=== PATIENT | female | born 1960 | race Caucasian/White ===

== ENCOUNTER 2016-08-23 10:56 | Day surgery (SDC) | payer OTHER ==
[2016-08-23] VITALS (10 sets, daily range): BP systolic 130–164; BP diastolic 66–92; PULSE 50–87; RESP 12–36; O2SAT 98–100
[~2016-08-23] VITALS: Ht 175.3 cm; Wt 79.8 kg
[~2016-08-23 10:56] MED LIST: HYDROcodone-APAP 5-325 mg Tablet PO PRN; LEVO175T5 PO; Lactated Ringer's 1,000 ML IV ONE; TRAZ-118 PO
[2016-08-23] MEDS ORDERED: Propofol 10,000 mCg/mL 20 mL Inj ONE (10:57)
[2016-08-23] MEDS ORDERED: Succinylcholine Chloride 20 mg/mL 5 mL Inj ONE (10:57)
[2016-08-23] MEDS ORDERED: fentaNYL-PF 50 mCg/mL 2 mL Inj ONE (10:57)
[2016-08-23] MEDS ORDERED: Phenylephrine/NS 100 mCg/mL 10 mL Syringe IVPUSH ONE (10:57)
[2016-08-23] MEDS ORDERED: Ondansetron 2 mg/mL 2 mL Inj ONE (10:57)
--- NOTE | 2016-08-23 11:15 | PCM.HPANE ---
Patient Data Surgeon Admitting Provider: Attending Provider:Holli Cuellar MD Primary Care Physician:Ismael Other Provider:Praful Phan Anesthesia Reason for Visit Multiple Basal Cell Carcinomas Ht/WT & BMI Height (Feet): 5 Height (Inches): 9 Weight (Kilograms): 79.83 Body Mass Index 26.00 Allergies Coded Allergies: No Known Allergies (Verified Allergy, Unknown, 12/08/14) Past Anesthesia History Anesthesia History: Denies:: Anesthesia Reactions Diabetes History Hx Diabetes?: No Medications Reported Medications Trazodone 100 Mg [id number] Mg PO HS Ref 0 08/19/16 Levothyroxine 175 Mcg [id number] Mcg PO DAILY Ref 0 08/19/16 History History of ENT Problems?: Yes Other HEENT Pertinent History: pt recently seen at for hx of right sided pink eye, abx drops given- prescription should be completed by 08/19/16 Hx of Heart Problems?: No Cardiovascular History: Denies:: Congestive Heart Failure Hypertension Hx of Respiratory Problem?: No Respiratory History: Denies:: Oxygen Administration Tuberculosis Use of C-PAP Machine Hx Neurologic Problems?: No Neurological History: Denies:: CVA Multiple Sclerosis Parkinson's Disease Seizures Hx of GI Problems?: Yes Gastrointestinal History: Positive for:: Gall Bladder Disease (removed) Hx of Problems?: No Genitourinary History: Denies:: Kidney Stones Urinary Tract Infection Female Hx: Denies:: Currently Problems with Breasts? Skin History: Positive for:: History Skin Disorders? (multiple BCC, skin lesions current admission problem) Hx Musculoskeletal Problems?: No Musculoskeletal History: Denies:: Fibromyalgia Joint Replacement Osteoarthritis Hx of Psycho/Social Problems?: No Hx Surgeries?: Yes (hysterectomy, cholecystectomy, thyroidectomy) Hx Any Other Health Problems?: Yes Other History: Positive for:: Cancer (thyroid) Thyroid Disease (thyroidectomy) Hx Diabetes: No Hx Alcohol Use: NoHx Substance Use: No Smoking Status: Current Every Day Smoker Have You Smoked inLast 12 mo: Yes Stop/Bang S-Snoring: Do You Snore Loudly: No T-Tired: feel tired, fatigued: No O-Obsered: Observed not breath: No P-Blood Pressure: treated: No B- Body Mass Index > 35 kg/m2: No A- Age over 50: Yes N- Neck Large Circumference: No G- Gender Male: No SHARON Total Score: 1 Risk Assessment Category Category 1A: Patient has history of documented sleep apnea, and HAS NOT received any narcotic, sedative or anesthesia administration during this stay. Category 1B: Patient has history of documented sleep apnea, and HAS received any narcotic , sedative or anesthesia administration during this stay Category 2: Patient has SUSPECTED Obstructive Sleep Apnea, and HAS received any narcotic , sedative or anesthesia administration during this stay. Category 3: Patient has SUSPECTED Obstructive Sleep Apnea and HAS NOT received narcotic, sedative or anesthesia administration during this stay. Category 4: Outpatient in Procedural Areas with known sleep apnea or who screen positive for High Risk via the STOP/BANG questionnaire. Plan Impression Patient chart reviewed, patient interviewed and anesthestic plan with risks, benefits, and alternatives discussed, and informed consent obtained. ASA Physical Status: ASA2 Mod Systemic Disease Anesthetic Support Modalities: Hemodynamic Monitoring Anesthetic Plan: GA Bene/Risks/Altern/Consents: Yes HP Complete Prior to Induction: Yes Rudy Pierce MD Aug 23, 2016 11:15
[2016-08-23] MEDS ORDERED: Lactated Ringer's 1,000 ML IV ONE (11:18)
[2016-08-23] MEDS ORDERED: Dexamethasone 4 mg/mL Inj IVPUSH PRN (11:55)
[2016-08-23] MEDS ORDERED: Lactated Ringer's 1,000 ML IV SCH (11:55)
[2016-08-23] MEDS ORDERED: EPHEDrine Sulfate 50 mg/mL Inj IVPUSH PRN (11:55)
[2016-08-23] MEDS ORDERED: Ondansetron 2 mg/mL 2 mL Inj IVPUSH PRN (11:55)
[2016-08-23] MEDS ORDERED: fentaNYL-PF 50 mCg/mL 2 mL Inj IVPUSH PRN (11:55)
[2016-08-23] MEDS ORDERED: Lactated Ringer's 500 ML IV PRN (11:55)
[2016-08-23] MEDS ORDERED: MetoCLOpramide 5 mg/mL 2 mL Inj IVPUSH PRN (11:55)
[2016-08-23] MEDS ORDERED: Phenylephrine 10,000 mCg/mL Inj IVPUSH PRN (11:55)
[2016-08-23] MEDS ORDERED: Bupivacaine-MPF 0.5% 30 mL Inj INFILTRATE ONE (12:01)
--- NOTE | 2016-08-23 12:33 | PCM.ANEP1 ---
Post Anesthesia Phase 1 PACU Phase 1 Assessment Vital Signs Vital Signs Date Time Temp Pulse Resp B/P Pulse Ox O2 Delivery O2 Flow Rate FiO2 08/23/16 11:19 36.1 87 17 132/92 100 Room Air Anesthetic Administered: GA Level of Alertness: Drowsy, not talking BHATIA's with Equal Strength: Yes Pain: No Nausea or Vomiting: No Airway Device: Endotrachial Tube Oxygen Delivery: Room Air Lungs: Clear to Auscultation Dermatome Level: Full Sensation Early,Rudy Glaser MD Aug 23, 2016 12:33
[2016-08-23] MEDS ORDERED: HYDR-4003 PO (14:04)
--- NOTE | 2016-08-23 14:18 | PCM.SURGPO ---
Immediate Operative Note Date of Surgery: Aug 23, 2016 Pre Operative Diagnosis Multiple basal cell carcinomas and other skin lesions Post Operative Diagnosis Multiple basal cell carcinomas and other skin lesions Procedure Wide local excision of 7 basal cell carcinomas (16mm Left medial leg, 5mm Left anterior leg, 5mm Right knee, 7mm Right back paramedian, 4mm left back lateral, 6mm left upper back paramedian, 6mm left lower back paramedian) Excisional biopsy of 5 skin lesions (5mm Right upper medial leg, 4mm Right lower medial leg, 4mm Right anterior leg, 5mm right forearm, 5mm left hand) Surgeon and Skin Specialist Surgeon: Holli Cuellar MD Assistants: Reena Aquino PAC Findings No gross evidence of invasion to margins Complications There were no periprocedural complications identified. Surgical Specimen Removed: Yes Specimen sent to Pathology: Yes Anesthetic Administered: GA Grafts, Implants: None Output, Estimated Blood Loss: 2 Blood Admin during surgery: No Attending Statement Tanning Solution Maker listed was not medically necessary for the successful completion of the case Holli Cuellar MD Aug 23, 2016 14:18
[2016-08-23] MEDS: HYDROmorphone 1 mg/mL Inj IVPUSH PRN ×4 (14:46→16:41)
--- NOTE | 2016-08-23 22:17 | OP ---
[address] [address] OPERATIVE REPORT PATIENT: DAVID ARMSTRONG : 1960 MR#: [id number] ADMIT: 08/23/2016 JOB ID: [id number] DATE OF SURGERY: 08/23/2016 PREOPERATIVE DIAGNOSIS(ES): Multiple basal cell carcinomas and other skin lesions. POSTOPERATIVE DIAGNOSIS(ES): Multiple basal cell carcinomas and other skin lesions. PROCEDURE PERFORMED: 1. Wide local excision of seven basal cell carcinomas and five skin lesions. Basal cell carcinomas are 16 mm lesion in the left medial leg, 5 mm lesion in the left anterior leg, 5 mm lesion next to right knee, 7 mm lesion on the right back on the paramedial location, 4 mm lesion in the left back lateral location, 6 mm lesion in the left upper back paramedian location, 6 mm lesion in the left lower back paramedian location. 2. Excisional biopsy of previously unbiopsied lesions are 5 mm upper medial leg right, 4 mm right lower medial leg, 4 mm right anterior leg, 5 mm right forearm, and 5 mm left hand. COMPLICATIONS: None. CONDITION OF THE PATIENT: Stable. SURGEON: Holli Cuellar MD. PILOT PLANT RESEARCH TECHNICIAN: Tawana Aquino PA-C. 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 She came to me requesting excision of these lesions, and additional spots she noticed, under general anesthesia. I discussed the risks, benefits and alternatives, and tried to get her to quit smoking, but she could not. After discussing the risks, benefits and alternatives, she is here today to have the procedure done. PROCEDURE: She was placed first in a supine position. Both the legs and arms were prepped and draped in the usual sterile fashion. Surgical time-out was undertaken using safety checklist, and all were in agreement. I marked out the above-mentioned lesions with 4 mm margins circumferentially and then marked elliptical incisions and excised lesions sharply. Maintained hemostasis with electrocautery. The wounds on the arms were closed with interrupted 4-0 Vicryl suture and the incisions on the legs were closed with 3-0 Vicryl, followed by 4-0 nylon interrupted suture. We had good hemostasis. We applied sterile dressings after infiltrating the site was 0.5% bupivacaine and then repositioned her in a left lateral decubitus position and proceeded to excise the four lesions above-mentioned on the back, again with 4 mm margins circumferentially with elliptical incisions, and after attaining hemostasis closed the wound in layers of 3-0 Vicryl, followed by 4-0 Ethilon interrupted. Sterile dressings were applied after infiltrating the sites was 0.5% bupivacaine and patient was taken to the recovery room in stable condition.
--- NOTE | 2016-08-26 06:56 | PCM.ANEP2 ---
Post Anesthesia Evaluation ASA/CMS Post Anesthesia VS in Patient's Normal Range?: Yes Resp Stable; Airway Patent?: Yes CV Function & Hydration Stable: Yes Mental Status Recovered?: Yes Pain control Satisfactory?: Yes N/V Control Satisfactory?: Yes Early,Rudy Glaser MD Aug 26, 2016 06:56
--- NOTE | 2016-08-26 08:47 | PATH ---
SURGICAL PATHOLOGY Attending Physician:Holli Cuellar MD CASE STATUS: Signed Out PATIENT NAME: DAVID ARMSTRONG PID: [id number] : 1960 DATE COLLECTED:08/23/2016 00:00 SPECIMEN: 1: Skin, biopsy 2: Skin, biopsy 3: Skin, biopsy 4: Skin, biopsy 5: Skin, biopsy 6: Skin, biopsy 7: Skin, biopsy 8: Skin, biopsy 9: Skin, biopsy 10: Skin, biopsy 11: Skin, biopsy 12: Skin, biopsy CLINICAL HISTORY: MULTIPLE BASAL CELL AND UNDIAGNOSED SKIN LESIONS ON BACK, LEFT AND RIGHT LEG AND LEFT AND RIGHT ARM AND HAND ALL SUTURE SUPERIOR 1). LEFT LEG ANTERIOR (BASAL CELL CA) 2). LEFT LEG MEDIAL (BASAL CELL CA) 3). RIGHT KNEE (BASAL CELL CA) 4). RIGHT MEDIAL LEG UPPER (NOT BIOPSIED) 5). RIGHT LOWER LEG MEDIAL (NOT BIOPSIED) 6). RIGHT LOWER LEG ANTERIOR (NOT BIOPSIED) 7). RIGHT FOREARM (NOT BIOPSIED) 8). LEFT HAND (NOT BIOPSIED) 9). RIGHT PARAMEDIAN BACK (BASAL CELL CA) 10). LEFT LATERAL BACK BASAL CELL 11). LEFT PARAMEDIAN UPPER BACK BASAL CELL 12). LEFT PARAMEDIAN LOWER BACK FINAL DIAGNOSIS: 1. Skin, Left Leg, Anterior, Excision: Multifocal, superficial basal cell carcinoma. Surgical margins negative. 2. Skin, Left Leg, Medial, Excision: Nodular basal cell carcinoma. Surgical margins negative. 3. Skin, Right Knee, Excision: Negative for basal cell carcinoma. Scar, consistent with previous biopsy. 4. Skin, Right Medial Leg, Upper, Excision: Dermatofibroma. Basal cell carcinoma. Margins negative for basal cell carcinoma (please see comment). 5. Skin, Right Lower Leg, Medial: Basal cell carcinoma. Tumors present at an inked peripheral surgical margin. 6. Skin, Right Lower Leg, Anterior, Excision: Nodular basal cell carcinoma. Tumor is close to the peripheral surgical margins. 7. Skin, Right Forearm, Excision: Actinic keratosis. No evidence of invasive neoplasm. 8. Skin, Left Hand, Excision: Actinic keratosis. No evidence of malignancy or dysplasia. 9. Skin, Right Paramedian Back, Excision: Nodular basal cell carcinoma. Surgical margins negative. 10. Skin, Left Lateral Back, Excision: Nodular basal cell carcinoma. Surgical margins negative. 11. Skin, Left Paramedian Upper Back, Excision: Basal cell carcinoma. Tumor is close to the peripheral surgical margins. 12. Skin, Left Paramedian, Lower Back: Basal cell carcinoma. Surgical margins negative. ICD10 C44.91 NOTE: Two lesions are present. The basal cell carcinoma is present at the dermal-epidermal junction. The dermatofibroma is present in the deep dermis, and is not completely excised. GROSS DESCRIPTION: 1. The specimen is received in formalin, labeled with the patient's name and "left leg anterior basal cell carcinoma". It consists of a 1.8 x 1.1 cm, unoriented, patel-white skin ellipse excised to a depth of 0.2 cm. There is an approximately 1.3 x 1.0 cm, ill-defined, slightly raised, patel lesion which is 0.3 cm from the nearest tip and appears to extend to the lateral margin. The resection margin is inked green, and the specimen is entirely submitted as follows: 1A-tips shaved, 0T-1P-zxeqxhdnbk serially sectioned. 2. The specimen is received in formalin, labeled with the patient's name and "left leg medial basal cell carcinoma. It consists of a 2.8 x 1.4 cm, patel-brown skin ellipse excised to a depth of 0.3 cm, oriented with a stitch designating superior. There is a 0.8 x 0.7 cm, patel-brown nodule with surrounding discoloration, which is 0.4 cm from both tips and 0.2 cm from the nearest lateral margin. The superior margin is inked blue and the remainder of the specimen is inked green. The specimen is entirely submitted as follows: 2A-tips shaved, 7A-0J-umdyxdmvp of specimen, serially sectioned and sequentially submitted from superior to inferior. 3. The specimen is received in formalin, labeled with the patient's name and "right knee". It consists of a 1.3 x 0.9 cm, irregularly shaped, patel-white skin excision excised to a depth of 0.3 cm. The specimen is oriented with a suture designating superior. No definitive lesion is identified on the skin surface. The superior resection margin is inked blue, and the remainder of the resection margin is inked green. The specimen is serially sectioned and entirely submitted in two cassettes. 4. The specimen is received in formalin, labeled with the patient's name and "right medial leg upper lesion". It consists of a 1.2 x 0.6 cm, patel-white skin ellipse excised to a depth of 0.3 cm. The specimen is oriented with a stitch designating superior. There is ill-defined patel-white discoloration present on the skin surface extending to less than 0.1 cm from the nearest lateral margin and 0.2 cm from the nearest tip. The4 superior tip is inked blue, and the remainder of the resection margin is inked green. The specimen is entirely submitted as follows: 4A-tips shaved, 4B-midsection serially sectioned. 5. The specimen is received in formalin, labeled with the patient's name and "right lower leg medial". It consists of a 0.7 x 0.4 cm, patel-brown skin ellipse excised to a depth of 0.2 cm, oriented with a stitch designating superior. No definitive lesion is identified on the skin surface. The specimen is entirely submitted as follows: 5A-tips shave, 5B-midsection bisected. 6. The specimen is received in formalin, labeled with the patient's name and "right lower leg anterior". It consists of a 0.8 x 0.4 cm, patel-brown skin ellipse excised to a depth of 0.3 cm. The specimen is oriented with a stitch designating superior. No definitive lesion is identified on the skin surface. The superior resection margin is inked blue, and the remainder of the resection margin is inked green. The specimen is entirely submitted as follows: 6A-tips shaved, 6B-midsection bisected. 7. The specimen is received in formalin, labeled with the patient's name and "right forearm". It consists of a 1.1 x 0.5 cm, patel-brown skin ellipse excised to a depth of 0.2 cm with a suture designating the superior margin. A 0.4 x 0.4 cm patel-brown lesion is less than 0.1 cm from the superior and inferior margins and is 0.3 cm from both tips. The superior resection margin is inked blue and the remainder of the resection margin is inked green. The specimen is entirely submitted as follows: 7A-tips shaved, 7B-midsection trisected. 8. The specimen is received in formalin, labeled with the patient's name and "left hand". It consists of a 0.8 x 0.5 cm, patel-brown skin ellipse excised to a depth of 0.2 cm with a stitch designating superior. No definitive lesion is identified on the skin surface. The superior resection margin is inked blue and the remainder of the resection margin is inked green. The specimen is entirely submitted as follows: 8A-tips shaved; 8B-midsection trisected. 9. The specimen is received in formalin, labeled with the patient's name and "right paramedian back". It consists of a 2.5 x 1.3 cm, patel-brown skin ellipse excised to a depth of 0.4 cm. The specimen is oriented with a stitch designating superior. There is a 1.5 x 1.3 cm, patel-brown lesion present on the skin surface extending to less than 0.1 cm from the superior and inferior margins, and 0.3 cm from the nearest tip. The superior resection margin is inked blue and the remainder of the resection margin is inked green. The specimen is entirely submitted as follows: 9A-tips shaved, 1K-9Z-iisugfojl of specimen serially sectioned. 10. The specimen is received in formalin, labeled with the patient's name and "left lateral back". It consists of a 2.1 x 1.3 cm, patel-brown skin ellipse excised to a depth of 0.2 cm, oriented with a stitch designating superior. An approximately 0.8 x 0.8 cm, ill-defined, patel lesion is present on the skin surface is located 0.3 cm from the nearest superior tip and 0.2 cm from the nearest lateral margin. The superior resection margin is inked blue and the remainder of the resection margin is inked green. Specimen is entirely submitted as follows: 10A-tips shaved, 40N-28C-nocpmbszt of specimen serially sectioned and sequentially submitted from superior to inferior. 11. The specimen is received in formalin, labeled with the patient's name and "left paramedian upper back". It consists of a 2.0 x 1.1 cm patel-brown skin ellipse excised to a depth of 0.2 cm with a stitch designating superior. There is ill-defined, patel-white discoloration present on the skin surface measuring approximately 1.4 x 0.8 cm, which is present at one of the lateral margins, and is 0.3 cm from the nearest superior tip. The superior resection margin is inked blue and the remainder of the resection margin is inked green. The specimen is entirely submitted as follows: 11A-tips shaved, 93P-35V-[id number] of specimen, serially sectioned and sequentially submitted from superior to inferior. 12. The specimen is received in formalin, labeled with the patient's name and "left paramedian lower back". It consists of a 2.0 x 0.9 cm, patel-brown skin ellipse excised to a depth of 0.4 cm with a stitch designating superior. No definitive lesion is identified on the skin surface. The superior resection margin is inked blue and the remainder of the resection margin is inked green. The specimen is entirely submitted as follows: 12A-tips shaved; 13D-92C-mbhqlxvev of specimen, serially sectioned and sequentially submitted from superior to inferior. (BALDEMAR:[id number]) ICD-9 CODES: CPT CODES: 1: 63803 10: 59009 11: 88088 12: 04165 2: 45761 3: 52935 4: 86764 5: 04078 6: 12627 7: 95272 8: 20171 9: 56975 Electronically Signed Out Richard Mensah MD [facility] [address], [place] [address] Technical component performed at [facility], [facility] [address], [place], [address]
== END 2016-08-23 23:59 | disposition home or self-care (01) ==
LOC: SAS 10:56
PROVIDERS: ATTEND Student in an Organized Health Care Education/Training Program
DX: C44.519 Basal cell carcinoma of skin of other part of trunk (principal); C44.719 Basal cell carcinoma of skin of left lower limb, including hip; C44.712 Basal cell carcinoma of skin of right lower limb, including hip; E03.9 Hypothyroidism, unspecified; F32.9 Major depressive disorder, single episode, unspecified; Z87.891 Personal history of nicotine dependence; L57.0 Actinic keratosis
CPT/HCPCS: 11100; 11101; 11601; 11602; J0330; J1170; J2250; J2370; J2405; J2765; J3010; J7120